=== PATIENT | male | born 1995 | race Two or more races ===

== ENCOUNTER 2018-06-10 11:37 | Emergency (ER) | payer BC ==
[~2018-06-10] VITALS: Ht 172.7 cm; Wt 84.4 kg
[2018-06-10 11:44] VITALS: Ht 172.7 cm; Wt 84.4 kg
[2018-06-10 12:15] LABS: RED CELL DISTRIBUTION WIDTH 14.4 % (11.5-14.5)
[2018-06-10 12:16] LABS: PLATELET COUNT 401 x10^3mcL (130-400)
[2018-06-10 12:27] LABS: CALCIUM 8.7 mg/dL (8.5-10.1); CARBON DIOXIDE 30.5 mmol/L (21-32); CHLORIDE SERUM 100 mmol/L (98-107); CREATININE SERUM 0.8 mg/dL (0.7-1.3); GFR1 > 60 mL/min; GLUCOSE SERUM 113 mg/dL (74-106); POTASSIUM SERUM 4.1 mmol/L (3.5-5.1); SODIUM SERUM 137 mmol/L (136-145)
[2018-06-10 12:32] LABS: ALBUMIN 4.5 g/dL (3.4-5.0); ALKALINE PHOSPHATASE 97 U/L (46-116); ALT/SGPT 49 U/L (16-63); AST/SGOT 20 U/L (15-37); LIPASE 123 IU/L (73-393); TOTAL PROTEIN, SERUM 8.1 g/dL (6.4-8.2)
[2018-06-10 13:20] LABS: ATYPICAL LYMPH 1 %; BAND NEUTROPHIL 9 % (0-10); BASOPHIL 0 % (0-2); MONOCYTE 5 % (0-7); SEGMENTED NEUTROPHILS 82 % (37-75)
[2018-06-10 13:22] LABS: PLATELET MORPHOLOGY LARGE PLATELET SEEN; rbc morphology (normal/abnorm) ABNORMAL (NORMAL); tear drop cell (dacryocyte) 1+
[2018-06-10 14:28] VITALS: BP 131/84
== END 2018-06-10 14:28 | disposition home or self-care (01) ==
LOC: ED 11:37
PROVIDERS: Emergency Medicine
DX: E86.0 Dehydration (principal); F17.210 Nicotine dependence, cigarettes, uncomplicated; K58.9 Irritable bowel syndrome, unspecified; Z71.6 Tobacco abuse counseling
CPT/HCPCS: 99406; J2405; J7030